=== PATIENT | male | born 1930 | race Caucasian/White ===

== ENCOUNTER 2020-05-02 14:17 | Emergency (ER) | payer MEDICARE ==
[~2020-05-02 14:17] MED LIST: ASPIRIN EC81 MG PO; AZITHROMYCIN250 MG PO; BISOPROLOL FUMAR5 MG PO; CERTAGEN1 EACH PO; CITRACAL D + H1 EACH PO; DUONEB 2.5-0.5M1 AMP NEB; FISH OIL 1,0001 EACH PO; FLORASTOR250 MG PO; GLUCOSAMINE &1 EACH PO; LEVAQUIN750 MG PO; MUCINEX 600MG600 MG PO; NEBULIZER UNIT NEB; PREDNISONE 20MG20 MG PO; PREDNISONE20 MG PO; PREDNISONE5 MG PO; PROSCAR5 MG PO; TURMERIC500 M1 PO; TYLENOL PM EX-1 EACH PO; VENTOLIN (2.5 MG/3 M PO; VISION FORMULA1 EAC1 PO; VITAMIN B122500 MC1 PO; VITAMIN D31 ML PO
[2020-05-02 15:40] LABS: BASOPHIL 0.3 % (0-2); EOSINOPHIL 0.6 % (0-7); HCT 37.6 % (42.0-52.0); HGB 12.5 g/dl (13.2-18.0); LYMPHOCYTE 9.7 % (15-48); MCH 33.2 pg (25.0-31.0); MCHC 33.2 g/dL (32.0-36.0); MONOCYTE 34.1 % (0-12); MPV 9.9 fL (6.0-9.5); NEUTROPHIL 54.7 % (41-80); NRBC 0; PLT 215 K/uL (150-400); RBC 3.76 M/uL (4.70-6.00); RDW 12.7 % (11.5-14.0); WBC 3.4 K/uL (4.0-10.5)
[2020-05-02 15:49] LABS: INR 1.74 (0.9-1.2); PROTHROMBIN TIME 19.3 SECONDS (11.4-13.6)
[2020-05-02 15:50] LABS: PTT 33.2 SECONDS (22.2-34.7)
[2020-05-02 15:58] LABS: ALBUMIN 3.1 g/dL (3.4-5.0); BILIRUBIN - TOTAL 0.3 mg/dL (0.2-1.0); BUN/CREAT RATIO (CALC) 15.6 RATIO; CREATININE 0.96 mg/dL (0.67-1.17); GLOBULIN (CALCULATION) 4.3 g/dL; POTASSIUM 4.1 mmol/L (3.5-5.1); TOTAL PROTEIN 7.4 g/dL (6.4-8.2)
[2020-05-02 17:10] LABS: BILIRUBIN NEGATIVE (NEGATIVE); BLOOD NEGATIVE Ery/uL (NEGATIVE); CLARITY CLEAR (CLEAR); COLOR YELLOW (YELLOW); GLUCOSE (U) NORMAL (NORMAL); LEUKOCYTES NEGATIVE Leu/uL (NEGATIVE); NITRITE NEGATIVE (NEGATIVE); PROTEIN NEGATIVE (NEGATIVE); SPECIFIC GRAVITY 1.025 (1.001-1.030); pH 6.5 (5.0-9.0)
[2020-05-02 17:46] LABS: CORONAVIRUS 2019 SARS-COV-2 POSITIVE (NEGATIVE); INFLUENZA A NAA NEGATIVE (NEGATIVE)
[2020-08-11] MEDS ORDERED: LEVAQUIN500 MG PO (14:46)
== END 2020-05-02 20:55 | disposition other institution (70) ==
LOC: FER 14:17
PROVIDERS: Emergency Medicine
DX: R47.9 Unspecified speech disturbances (principal); R53.1 Weakness; U07.1 COVID-19; I10 Essential (primary) hypertension; J44.9 Chronic obstructive pulmonary disease, unspecified; I44.0 Atrioventricular block, first degree; Z79.82 Long term (current) use of aspirin
CPT/HCPCS: 36415; 70450; 71045; 80053; 80061; 81003; 84484; 85025; 85610; 85730; 93005; U0002

== ENCOUNTER 2020-05-07 21:40 | Inpatient (IN) | payer MEDICARE ==
[~2020-05-07] VITALS: Ht 182.9 cm; Wt 120.3 kg
[2020-05-07 22:07] LABS: BASOPHIL 0 % (0-2); EOSINOPHIL 0 % (0-7); HCT 36.5 % (42.0-52.0); HGB 12.7 g/dl (13.2-18.0); LYMPHOCYTE 31.8 % (15-48); MCH 33.6 pg (25.0-31.0); MCHC 34.8 g/dL (32.0-36.0); MCV 96.6 fL (78.0-100.0); MONOCYTE 25.7 % (0-12); MPV 10.1 fL (6.0-9.5); NRBC 0; PLT 173 K/uL (150-400); RBC 3.78 M/uL (4.70-6.00); RDW 12.6 % (11.5-14.0); WBC 2.1 K/uL (4.0-10.5)
[2020-05-07 22:14] LABS: NEUTROPHIL 39.7 % (41-80)
[2020-05-07 22:42] LABS: PRO-BNP 301 pg/mL (<450)
[2020-05-07 22:50] LABS: ALBUMIN 3.1 g/dL (3.4-5.0); BILIRUBIN - TOTAL 0.4 mg/dL (0.2-1.0); BUN/CREAT RATIO (CALC) 17.1 RATIO; CREATININE 0.82 mg/dL (0.67-1.17); GLOBULIN (CALCULATION) 4.5 g/dL; POTASSIUM 3.6 mmol/L (3.5-5.1); TOTAL PROTEIN 7.6 g/dL (6.4-8.2)
[2020-05-07 23:14] LABS: LACTIC ACID 1.8 mmol/L (0.4-1.9)
[2020-05-08 01:11] LABS: BILIRUBIN NEGATIVE (NEGATIVE); BLOOD NEGATIVE Ery/uL (NEGATIVE); CLARITY CLEAR (CLEAR); COLOR YELLOW (YELLOW); GLUCOSE (U) NORMAL (NORMAL); LEUKOCYTES NEGATIVE Leu/uL (NEGATIVE); NITRITE NEGATIVE (NEGATIVE); PROTEIN NEGATIVE (NEGATIVE); UROBILINOGEN 0.2 mg/dL (0.2-1.0)
[2020-05-08] MEDS ORDERED: ZINC50 M2 PO (05:29)
[2020-05-08] MEDS ORDERED: SYMBICORT 80-10.2 GM INH (05:40)
[2020-05-08 07:46] LABS: BASOPHIL 0 % (0-2); EOSINOPHIL 0 % (0-7); HCT 34.9 % (42.0-52.0); HGB 12.2 g/dl (13.2-18.0); LYMPHOCYTE 24.6 % (15-48); MCV 97.2 fL (78.0-100.0); MONOCYTE 12.8 % (0-12); MPV 10.1 fL (6.0-9.5); NEUTROPHIL 60.9 % (41-80); NRBC 0; PLT 158 K/uL (150-400); RBC 3.59 M/uL (4.70-6.00); RDW 12.5 % (11.5-14.0)
[2020-05-08 08:03] LABS: WBC 1.8 K/uL (4.0-10.5)
[2020-05-08 08:18] LABS: ALBUMIN 2.8 g/dL (3.4-5.0); BILIRUBIN - TOTAL 0.3 mg/dL (0.2-1.0); BUN/CREAT RATIO (CALC) 15.8 RATIO; CREATININE 0.76 mg/dL (0.67-1.17); GLOBULIN (CALCULATION) 4.3 g/dL; MAGNESIUM 1.8 mg/dL (1.8-2.4); POTASSIUM 3.9 mmol/L (3.5-5.1); TOTAL PROTEIN 7.1 g/dL (6.4-8.2)
[2020-05-08] MEDS ORDERED: DEXAMETHASONE 2M2 MG PO (18:29)
[2020-05-08] MEDS ORDERED: CEFDINIR300 MG PO (18:29)
[2020-05-08] MEDS ORDERED: AZITHROMYCIN250 MG PO (18:29)
[2020-08-11] MEDS ORDERED: LEVAQUIN500 MG PO (14:46)
== END 2020-05-09 18:19 | disposition home or self-care (01) | DRG 177 ==
LOC: FER 21:40 → FMS 05-08 02:47
PROVIDERS: Allergy & Immunology; Emergency Medicine Emergency Medical Services; ADMIT Allergy & Immunology Allergy
PROC: 8E0ZXY6 Isolation (ICD-10-PCS; principal; 2020-05-08)
PROC: XW033E5 Introduction of Remdesivir Anti-infective into Peripheral Vein, Percutaneous Approach, New Technology Group 5 (ICD-10-PCS; 2020-05-08)
DX: U07.1 COVID-19 (principal); J12.82 Pneumonia due to coronavirus disease 2019; J96.91 Respiratory failure, unspecified with hypoxia; J44.0 Chronic obstructive pulmonary disease with (acute) lower respiratory infection; J40 Bronchitis, not specified as acute or chronic; I10 Essential (primary) hypertension; N40.0 Benign prostatic hyperplasia without lower urinary tract symptoms; Z96.653 Presence of artificial knee joint, bilateral
CPT/HCPCS: 36415; 36600; 71045; 71275; 80053; 81003; 82728; 82803; 83605; 83615; 83735; 83880; 84145; 84484; 85025; 85379; 87040; 87077; 87088; 87186; 93005; 94010; 94640; 94664; C9399; G0378; J0456; J0696; J1100; J1650; J2405; J7030; J7050; J8540; Q9967; U0002

== ENCOUNTER 2020-08-09 15:01 | Day surgery (SDCO) | payer MEDICARE ==
[~2020-08-09] VITALS: Ht 185.4 cm; Wt 120.7 kg
[~2020-08-09 15:01] MED LIST changes: +CEFDINIR300 MG PO; +DEXAMETHASONE 2M2 MG PO; +SYMBICORT 80-10.2 GM INH; +ZINC50 M2 PO
[2020-08-09 15:37] LABS: BASOPHIL 0.2 % (0-2); EOSINOPHIL 2.2 % (0-7); HCT 35.7 % (42.0-52.0); HGB 12.1 g/dl (13.2-18.0); LYMPHOCYTE 6.1 % (15-48); MCH 33.7 pg (25.0-31.0); MCHC 33.9 g/dL (32.0-36.0); MCV 99.4 fL (78.0-100.0); MONOCYTE 13.4 % (0-12); MPV 9.8 fL (6.0-9.5); NEUTROPHIL 68.1 % (41-80); NRBC 0; PLT 233 K/uL (150-400); RBC 3.59 M/uL (4.70-6.00); RDW 12.8 % (11.5-14.0); WBC 4.1 K/uL (4.0-10.5)
[2020-08-09 15:53] LABS: BILIRUBIN - TOTAL 0.4 mg/dL (0.2-1.0); BUN/CREAT RATIO (CALC) 16.5 RATIO; CREATININE 0.85 mg/dL (0.67-1.17); GLOBULIN (CALCULATION) 4.9 g/dL; POTASSIUM 4.3 mmol/L (3.5-5.1); TOTAL PROTEIN 7.9 g/dL (6.4-8.2)
--- NOTE | 2020-08-09 19:17 | NUR ---
FAMILY AT BEDSIDE ADMISSION DATABASE COMPLETED BED ALARM ON, USES URINAL TO VOID
[2020-08-09 20:26] LABS: MAGNESIUM 1.9 mg/dL (1.8-2.4); PHOSPHORUS 3.1 mg/dL (2.6-4.7)
[2020-08-10 06:16] LABS: ALBUMIN 2.8 g/dL (3.4-5.0); BILIRUBIN - TOTAL 0.5 mg/dL (0.2-1.0); BUN/CREAT RATIO (CALC) 18.2 RATIO; CREATININE 0.88 mg/dL (0.67-1.17); GLOBULIN (CALCULATION) 4.2 g/dL; POTASSIUM 3.8 mmol/L (3.5-5.1)
[2020-08-10 06:17] LABS: BASOPHIL 0.3 % (0-2); EOSINOPHIL 0.6 % (0-7); HCT 33.4 % (42.0-52.0); HGB 11.5 g/dl (13.2-18.0); LYMPHOCYTE 24.6 % (15-48); MCH 33.6 pg (25.0-31.0); MCHC 34.4 g/dL (32.0-36.0); MCV 97.7 fL (78.0-100.0); MONOCYTE 15.7 % (0-12); MPV 9.8 fL (6.0-9.5); NEUTROPHIL 50.5 % (41-80); NRBC 0; PLT 212 K/uL (150-400); RBC 3.42 M/uL (4.70-6.00); WBC 3.6 K/uL (4.0-10.5)
[2020-08-10 10:22] LABS: BILIRUBIN NEGATIVE (NEGATIVE); BLOOD 3+ Ery/uL (NEGATIVE); COLOR YELLOW (YELLOW); GLUCOSE (U) NORMAL (NORMAL); LEUKOCYTES 3+ Leu/uL (NEGATIVE); NITRITE NEGATIVE (NEGATIVE); PROTEIN 1+ mg/dL (NEGATIVE); SPECIFIC GRAVITY 1.025 (1.001-1.030)
[2020-08-10 10:42] LABS: CLARITY HAZY (CLEAR)
[2020-08-10 10:44] LABS: URINARY WBC TNTC
[2020-08-10 10:45] LABS: BACTERIA 2+; SQUAMOUS EPITHELIAL CELLS RARE
--- NOTE | 2020-08-10 11:44 | NUR ---
MET WITH PT. AND SPOUSE. PT IS CURRENT WITH [facility]. NEXT APPT IS 08/14/20. PT. HAS A ROLLING WALKER. ADVISED CHAVEZ PALMER OF PT. PLAN TO CONTINUE THERAPY AT [facility].
[2020-08-11] MEDS ORDERED: LEVAQUIN500 MG PO (14:46)
== END 2020-08-10 12:35 | disposition home or self-care (01) ==
LOC: FER 15:01 → FMS 17:01
PROVIDERS: Emergency Medicine; Nurse Practitioner; ADMIT Internal Medicine
DX: R53.1 Weakness (principal); T50.B95A Adverse effect of other viral vaccines, initial encounter; J44.9 Chronic obstructive pulmonary disease, unspecified; I10 Essential (primary) hypertension; N40.0 Benign prostatic hyperplasia without lower urinary tract symptoms; Z87.891 Personal history of nicotine dependence; Z79.82 Long term (current) use of aspirin; Z79.899 Other long term (current) drug therapy; Z88.8 Allergy status to other drugs, medicaments and biological substances; Z20.822 Contact with and (suspected) exposure to COVID-19
CPT/HCPCS: 36415; 71045; 80053; 81001; 83735; 83880; 84100; 85025; 94010; 94640; 97162; 97166; 97530-GP; 97535; G0378; J1650; U0002

== ENCOUNTER 2020-08-13 05:06 | Emergency (ER) | payer MEDICARE ==
[~2020-08-13 05:06] MED LIST changes: +LEVAQUIN500 MG PO
[2020-08-13 07:03] LABS: BASOPHIL 0.1 % (0-2); EOSINOPHIL 0.1 % (0-7); HCT 36.2 % (42.0-52.0); HGB 12.7 g/dl (13.2-18.0); LYMPHOCYTE 9.6 % (15-48); MCH 33.9 pg (25.0-31.0); MCHC 35.1 g/dL (32.0-36.0); MCV 96.5 fL (78.0-100.0); MONOCYTE 11.1 % (0-12); NRBC 0; PLT 253 K/uL (150-400); RBC 3.75 M/uL (4.70-6.00); RDW 12.4 % (11.5-14.0); WBC 6.7 K/uL (4.0-10.5)
[2020-08-13 07:08] LABS: INR 1.58 (0.9-1.2); PROTHROMBIN TIME 17.9 SECONDS (11.4-13.6)
[2020-08-13 07:15] LABS: ALBUMIN 3.2 g/dL (3.4-5.0); BILIRUBIN - TOTAL 0.5 mg/dL (0.2-1.0); BUN/CREAT RATIO (CALC) 14.1 RATIO; CREATININE 0.92 mg/dL (0.67-1.17); GLOBULIN (CALCULATION) 4.7 g/dL; POTASSIUM 4.1 mmol/L (3.5-5.1); TOTAL PROTEIN 7.9 g/dL (6.4-8.2)
[2020-08-13 07:21] LABS: BILIRUBIN NEGATIVE (NEGATIVE); BLOOD TRACE-LYSED Ery/uL (NEGATIVE); COLOR YELLOW (YELLOW); GLUCOSE (U) NORMAL (NORMAL); LEUKOCYTES 2+ Leu/uL (NEGATIVE); NITRITE NEGATIVE (NEGATIVE); PROTEIN TRACE (LOW) mg/dL (NEGATIVE); UROBILINOGEN 0.2 mg/dL (0.2-1.0)
[2020-08-13 07:25] LABS: PRO-BNP 674 pg/mL (<450)
[2020-08-13 07:26] LABS: CLARITY HAZY (CLEAR)
[2020-08-13 07:27] LABS: BACTERIA TRACE; URINARY WBC TNTC
[2020-08-13 07:38] LABS: LACTIC ACID 1.7 mmol/L (0.4-1.9)
== END 2020-08-13 10:33 | disposition home or self-care (01) ==
LOC: FER 05:06
PROVIDERS: Emergency Medicine
DX: N39.0 Urinary tract infection, site not specified (principal); R33.9 Retention of urine, unspecified; I10 Essential (primary) hypertension; J44.9 Chronic obstructive pulmonary disease, unspecified; K80.20 Calculus of gallbladder without cholecystitis without obstruction; E66.9 Obesity, unspecified; Z87.891 Personal history of nicotine dependence; Z88.8 Allergy status to other drugs, medicaments and biological substances; Z79.899 Other long term (current) drug therapy
CPT/HCPCS: 36415; 71045; 80053; 81001; 82150; 83605; 83880; 84484; 85025; 85610; 93005; 96374; 96375; J0696; J2405; J7030; Q9967

== ENCOUNTER 2020-08-16 17:57 | Day surgery (SDCO) | payer MEDICARE ==
[~2020-08-16] VITALS: Ht 185.4 cm; Wt 118.4 kg
[2020-08-16 19:39] LABS: BASOPHIL 0.2 % (0-2); EOSINOPHIL 0.8 % (0-7); HCT 31.3 % (42.0-52.0); LYMPHOCYTE 10.8 % (15-48); MCH 34.1 pg (25.0-31.0); MCHC 35.1 g/dL (32.0-36.0); MCV 96.9 fL (78.0-100.0); MONOCYTE 12.7 % (0-12); MPV 9.9 fL (6.0-9.5); NEUTROPHIL 68.2 % (41-80); NRBC 0; PLT 236 K/uL (150-400); RBC 3.23 M/uL (4.70-6.00); RDW 12.4 % (11.5-14.0)
[2020-08-16 19:42] LABS: WBC 8.9 K/uL (4.0-10.5)
[2020-08-16 20:00] LABS: ALBUMIN 2.6 g/dL (3.4-5.0); BILIRUBIN - TOTAL 0.4 mg/dL (0.2-1.0); BUN/CREAT RATIO (CALC) 10.8 RATIO; CREATININE 0.74 mg/dL (0.67-1.17); GLOBULIN (CALCULATION) 4.2 g/dL; POTASSIUM 3.8 mmol/L (3.5-5.1); TOTAL PROTEIN 6.8 g/dL (6.4-8.2)
[2020-08-16 20:08] LABS: LACTIC ACID 0.9 mmol/L (0.4-1.9)
[2020-08-16 20:10] LABS: PRO-BNP 867 pg/mL (<450)
[2020-08-16 22:43] LABS: BILIRUBIN NEGATIVE (NEGATIVE); BLOOD TRACE-INTACT Ery/uL (NEGATIVE); CLARITY CLEAR (CLEAR); COLOR YELLOW (YELLOW); GLUCOSE (U) NORMAL (NORMAL); PROTEIN NEGATIVE (NEGATIVE); UROBILINOGEN 0.2 mg/dL (0.2-1.0)
[2020-08-16 22:44] LABS: LEUKOCYTES 1+ Leu/uL (NEGATIVE); NITRITE NEGATIVE (NEGATIVE)
[2020-08-16 22:49] LABS: BACTERIA TRACE; SQUAMOUS EPITHELIAL CELLS RARE; URINARY RBC RARE; URINARY WBC RARE
[2020-08-16 22:50] LABS: MUCOUS TRACE
--- NOTE | 2020-08-17 15:18 | NUR ---
MET WITH PT, SPOUSE AND DAUGHTER. THEY ARE CONCERNED THAT PT. IS NOT GETTING ANY BETTER AND DO NOT WANT HIM TO D/C UNTIL IT IS DISCOVERED WHAT IS WRONG WITH HIM. PT. HAS A ROLLING WALKER. HE HAS HAD HH IN THE PAST BUT, HIS CANNOT REMEMBER WHICH AGENCY. NURSE, YULIYA, ADVISED ME THAT PT. DAUGHTER WANTS HER FATHER TO GO INPATIENT AT [facility]. ADVISED JAYY FERNANDEZ. REBECCA WANTS TO WAIT UNTIL THE PT EVAL HAS BEEN COMPLETED. TC TO GABY HE WILL SEE PT THIS DATE TO COMPLETE EVAL. THE PT HAS NOT BEEN COMPLETED PT. WAS AWAITING A [facility] MRI AND THERAPY DID NOT WANT TO GET HIM UP UNTIL THE MRI RESULTS ARE COMPLETE. GABY FROM THERAPY HAS COMPLETED EVAL. HE ADVISED MYSELF AND REBECCA THAT PT. IS WALKING 80 FEET. GABY STATES THAT PT NEEDS TO CONTINUE THERAPY AT [facility].
--- NOTE | 2020-08-17 16:16 | NUR ---
JAYY FERNANDEZ ASKED IF I WOULD ACCOMPANY HIM TO SPEAK WITH PT. REGRADING RECOMMENDATION FOR CONTINUED OUTPT THERAPY. MET WITH PT. REBECCA EXPLAINED THAT THERAPY IS RECOMMENDING TO CONTINUE OUTP. THERAPY. PT. STATED THAT HE INTENDED TO DO SO HE ENJOYED GOING TO THERAPY. PT. SPOUSE AND DAUGHTER HAD LEFT, BUT THE DAUGHTER WOULD BE RETURNING TO SPEND THE NIGHT. REBECCA ADVISED PT. THAT HE WOULD BE SPEAKING WITH DAUGHTER WHEN SHE RETURNED.
--- NOTE | 2020-08-17 20:02 | NUR ---
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 SITTING IN CHAIR, C-COLLAR IN USE. DAUGHTER (CAROLINE) AT BEDSIDE.
[2020-08-18 04:13] LABS: BASOPHIL 0.1 % (0-2); EOSINOPHIL 0.6 % (0-7); HCT 32.7 % (42.0-52.0); HGB 11.3 g/dl (13.2-18.0); LYMPHOCYTE 15.8 % (15-48); MCH 33.6 pg (25.0-31.0); MCHC 34.6 g/dL (32.0-36.0); MCV 97.3 fL (78.0-100.0); MONOCYTE 16.4 % (0-12); NRBC 0; PLT 276 K/uL (150-400); RBC 3.36 M/uL (4.70-6.00); RDW 12.3 % (11.5-14.0); WBC 8.3 K/uL (4.0-10.5)
[2020-08-18 04:24] LABS: NEUTROPHIL 59.8 % (41-80)
[2020-08-18 04:38] LABS: IRON % SATURATION 28.4 %SAT (20-50)
[2020-08-18 05:08] LABS: ALBUMIN 2.6 g/dL (3.4-5.0); BILIRUBIN - TOTAL 0.6 mg/dL (0.2-1.0); BUN/CREAT RATIO (CALC) 11.3 RATIO; CREATININE 0.71 mg/dL (0.67-1.17); FOLIC ACID (SERUM) 19.2 ng/mL (8.6-58.9); FT4 (FREE T4) 1.5 ng/dL (0.76-1.46); GLOBULIN (CALCULATION) 5.2 g/dL; MAGNESIUM 1.4 mg/dL (1.8-2.4); PHOSPHORUS 3.2 mg/dL (2.6-4.7); POTASSIUM 3.5 mmol/L (3.5-5.1); TOTAL PROTEIN 7.8 g/dL (6.4-8.2)
--- NOTE | 2020-08-18 06:12 | NUR ---
0526 Magnesium level of 1.[address] Pardo.
[2020-08-18] MEDS ORDERED: FEOSOL325 MG PO (08:59)
[2020-08-18] MEDS ORDERED: MAG-OXIDE 400M400 MG PO (09:04)
== END 2020-08-18 11:35 | disposition home or self-care (01) ==
LOC: FER 17:57 → FMS 08-17 08:14
PROVIDERS: Emergency Medicine; Internal Medicine; Nurse Practitioner; ADMIT Internal Medicine
DX: R53.1 Weakness (principal); R47.81 Slurred speech; R51.9 Headache, unspecified; R06.02 Shortness of breath; I10 Essential (primary) hypertension; J44.9 Chronic obstructive pulmonary disease, unspecified; N30.00 Acute cystitis without hematuria; E55.9 Vitamin D deficiency, unspecified; S12.111A Posterior displaced Type II dens fracture, initial encounter for closed fracture; M48.02 Spinal stenosis, cervical region; M50.30 Other cervical disc degeneration, unspecified cervical region; Z85.820 Personal history of malignant melanoma of skin; Z85.79 Personal history of other malignant neoplasms of lymphoid, hematopoietic and related tissues; Z87.891 Personal history of nicotine dependence; Z66 Do not resuscitate; Z79.2 Long term (current) use of antibiotics; Z79.82 Long term (current) use of aspirin; Z79.899 Other long term (current) drug therapy; Z88.8 Allergy status to other drugs, medicaments and biological substances; Z20.822 Contact with and (suspected) exposure to COVID-19
CPT/HCPCS: 36415; 70551; 71045; 72125; 72141; 80053; 81001; 82390; 82525; 82607; 82728; 82746; 83540; 83550; 83605; 83735; 83880; 84100; 84145; 84439; 84443; 84484; 85025; 87088; 93005; 94010; 94640; 97162; 97530-GP; G0378; J1650; J3475; U0002